=== PATIENT | male | born 1960 | race Caucasian/White ===

== ENCOUNTER → 2016-10-20 | Outpatient (REF) | payer MEDICARE, MEDICAID ==
[~2016-10-20] MED LIST: CEPH-507 PO; METF500T PO; METO50TA PO; SULF1TAB35 PO
[2016-10-20 15:17] LABS: BASOPHILS % (AUTO) 0 % (0-2); EOSINOPHILS # (AUTO) 0.3 10^3uL; EOSINOPHILS % (AUTO) 4 % (0-4); LYMPHOCYTES # (AUTO) 1.4 X10^3; MEAN CORPUSCULAR HEMOGLOBIN 30.8 PG (26.0-34.0); MEAN CORPUSCULAR HGB CONC 34.6 g/dL (31.0-37.0); MEAN CORPUSCULAR VOLUME 89 FL (80-100); MEAN PLATELET VOLUME 10.2 FL (6.0-9.5); MONOCYTES # (AUTO) 0.8 X10^3; MONOCYTES % (AUTO) 12 % (3-11); NEUTROPHILS # (AUTO) 4.2 X10^3; NEUTROPHILS % (AUTO) 64 % (51-67); PLATELET COUNT 175 10^3uL (150-450); WHITE BLOOD COUNT 6.61 10^3uL (4.0-11.0)
[2016-10-20 15:39] LABS: ALBUMIN 4.6 g/dL (3.4-5.0); ANION GAP 17.9 MEQ/L (3-15); CALCULATED IONIZED CALCIUM 4.4 mg/dL (3.8-4.6); TOTAL PROTEIN 7.1 g/dL (6.4-8.5)
== END ==
LOC: LAB 14:50
PROVIDERS: ATTEND Family Medicine
DX: E11.40 Type 2 diabetes mellitus with diabetic neuropathy, unspecified (principal); I10 Essential (primary) hypertension; Z12.5 Encounter for screening for malignant neoplasm of prostate
CPT/HCPCS: 80053; 80061; 83036; 84443; 85025; G0103; 84153

== ENCOUNTER → 2016-10-27 | Outpatient (REF) | payer MEDICARE, MEDICAID | LOC: LAB 14:42 | PROVIDERS: ATTEND Family Medicine | DX: I10 Essential (primary) hypertension (principal); I25.10 Atherosclerotic heart disease of native coronary artery without angina pectoris; E11.9 Type 2 diabetes mellitus without complications | CPT/HCPCS: 82043 ==